=== PATIENT | female | born 1945 | race Asian ===

== ENCOUNTER 2020-06-25 10:42 | Emergency (ER) | payer OTHER ==
[2020-06-25] MEDS ORDERED: Caclcium Chloride 10% INJ SYR IV ONE (10:43)
[2020-06-25] MEDS ORDERED: EPINEPHrine 1 MG/10 ML SYR IV ONE (10:43)
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
[2020-06-25 14:46] VITALS: TEMP 97.8
== END 2020-06-25 14:40 ==
LOC: ER 10:42
PROC: 5A02216 Assistance with Cardiac Output using Other Pump, Continuous (ICD-10-PCS; principal; 2020-06-25)
DX: I46.9 Cardiac arrest, cause unspecified (principal); W69.XXXA Accidental drowning and submersion while in natural water, initial encounter; Y92.832 Beach as the place of occurrence of the external cause
CPT/HCPCS: 36415; 82947; 99285; 92950; J0171